=== PATIENT | male | born 1950 | race Caucasian/White ===

== ENCOUNTER 2017-07-27 11:47 | Emergency (ER) | payer OTHER ==
[2017-07-27 12:02] VITALS: PULSE 75
[2017-07-27 12:06] LABS: % IMMATURE GRANULYOCYTES 0.3 % (0.0-1.1); ABSOLUTE IMMATURE GRANULOCYTES 0.02 10^3/uL (0.00-0.10); ADD DIFF? NO; ADD MORPH? NO; ADD SCAN? NO; ATYPICAL LYMPHOCYTE FLAG 10 (0-99); FRAGMENT RBC FLAG 0 (0-99); HEMATOCRIT 43.9 % (40.0-51.0); HEMOGLOBIN 15.4 g/dL (13.7-17.5); LEFT SHIFT FLG 0 (0-99); LIPEMIA HEMOLYSIS FLAG 90 (0-99); MEAN CELL HEMOGLOBIN 33.7 pg (27.9-34.1); MEAN CELL HEMOGLOBIN CONCENTR. 35.1 g/dL (32.4-36.7); MEAN CELL VOLUME 96.1 fL (81.5-99.8); MEAN PLATELET VOLUME 10.5 fL (8.7-11.7); PLATELET CLUMPS FLAG 0 (0-99); PLATELET COUNT 236 10^3/uL (150-400); RED BLOOD CELL COUNT 4.57 10^6/uL (4.40-6.38); RED CELL DISTRIBUTION WIDTH 12.9 % (11.5-15.2)
[2017-07-27 12:24] LABS: ANION GAP 13 mEq/L (8-16); CALCIUM 9.5 mg/dL (8.5-10.4); CARBON DIOXIDE 22 mEq/l (22-31); CHLORIDE 100 mEq/L (97-110); CREATININE 0.9 mg/dL (0.7-1.3); GLOMERULAR FILTRATION RATE > 60; GLUCOSE 98 mg/dL (70-100); POTASSIUM 4.6 mEq/L (3.5-5.2); SODIUM 135 mEq/L (134-144)
--- NOTE | 2017-07-27 13:08 | EDPHY ---
H & P Stated Complaint: VASQUES, Weakness, Dizzy Time Seen by Provider: 07/27/17 12:55 HPI/ROS: CHIEF COMPLAINT: Lightheadedness, headache HISTORY OF PRESENT ILLNESS: This patient is a healthy 66 year old male arriving via EMS complaining of lightheadedness onset this afternoon shortly prior to arrival. Working at his office, experienced a bright flash of light in his entire field of vision, felt his head jerk or "snap" back once. He became very lightheaded immediately, and rested with his head between his legs for 5-10 minutes. He felt if he got up he would collapse. No room spinning sensation, no VASQUES and no diaphoresis. He asked his coworker to call 911. Since the event, he has developed a very mild headache at the back of his head which waxes and wanes, but his primary concern is the episode. He feels fatigued, but feels his dizziness has resolved at this time. He denies recent head or neck trauma or chiropractic manipulation. He denies prior similar episodes. REVIEW OF SYSTEMS: A 10 point review of systems was performed and is negative with the exception of the elements mentioned in the history of present illness. - Personal History Current Tetanus Diphtheria and Acellular Pertussis (TDAP): Yes - Medical/Surgical History PMH: Denies any pertinent past medical history. Hx Asthma: No Hx Chronic Respiratory Disease: No Hx Diabetes: No Hx Cardiac Disease: No Hx Renal Disease: No Hx Cirrhosis: No Hx Alcoholism: No Hx HIV/AIDS: No Hx Splenectomy or Spleen Trauma: No Other PMH: EOE, appy, hernia repair, orthox4, pleuracy 2014 - Social History Smoking Status: Never smoked Additional Social History: . at bedside. - Physical Exam Exam: General Appearance: Alert, no distress Eyes: Pupils equal and round, no conjunctival pallor or injection ENT, Mouth: Mucous membranes moist Neck: Normal inspection Respiratory: Lungs are clear to auscultation Cardiovascular: Regular rate and rhythm Gastrointestinal: Abdomen is soft and non- tender Neurological: Alert, oriented x3, cranial nerves II through XII intact, motor 5 /5, sensory intact to light touch. Normal [id number]. Skin: Warm and dry, no rash Extremities: Nontender, no pedal edema Psychiatric: Mood and affect normal Constitutional: Initial Vital Signs Temperature (C) 36.3 C 07/27/17 11:57 Heart Rate 75 07/27/17 11:57 Respiratory Rate 18 07/27/17 11:57 Blood Pressure 137/89 H 07/27/17 11:57 O2 Sat (%) 96 07/27/17 11:57 O2 Delivery Mode Room Air Allergies/Adverse Reactions: No Known Allergies Allergy (Unverified 09/11/14 22:38) Home Medications: Medication Instructions Recorded Aspirin [Aspirin 81mg (OTC)] 162 mg PO DAILY #60 tab 09/12/14 Cholecalciferol Vit D3 [Vitamin D3 1,000 units PO DAILY 09/12/14 (*)] Multivitamins [Multivitamin (*)] 1 each PO DAILY 09/12/14 [place]-3 Fatty Acids [Fish Oil 1000 1,000 mg PO DAILY 09/12/14 mg (*)] Medical Decision Making - Diagnostics EKG Interpretation: EKG interpreted by me reveals normal sinus rhythm, rate 74, no ST/T changes. Interpretation: normal EKG Imaging Results: Imaging Impressions Head CT 07/27/17 13:13 Impression: Normal brain. No intracranial hemorrhage or evidence of ischemia. Findings discussed with Emergency Department physician, Nikki Lofton, on July 27, 2017 at 1401 hours. Head CTA 07/27/17 13:13 Impression: 1. Normal intracranial arterial circulation. No evidence of embolic disease or aneurysm. 2. Patent venous system. Findings discussed with Emergency Department physician, Nikki Lofton at 1415 hours 07/27/2017. Neck CTA 07/27/17 13:13 Impression: 1. Widely patent bilateral carotid and vertebral arteries. Trace bilateral carotid bulb plaque. No flow-limiting stenosis or ulcerated plaque. 2. No dissection or occlusion. Measurement of carotid stenosis is based on the residual internal carotid diameter with [place] Symptomatic Carotid Endarterectomy Trial (NASCET) based stenosis levels. Findings discussed with Emergency Department physician, Nikki Lofton at 1432 hours 07/27/2017. Imaging: Discussed imaging studies w/ call center agent Radiologist ED Course/Re-evaluation: 66 year old male presents with an episode of lightheadedness following a bright flash of light about two hours ago. Physical exam unremarkable, the patient is neurologically intact and his symptoms have mostly resolved aside from a mild headache around his occipital area. Unusual constellation of symptoms. Given that he did not have a headache during the episode, I do not suspect that this aneurysm. In addition there is no evidence of CVA or TIA. There is no evidence of retinal detachment or primary ocular problem, given that this very brief episode of flash of light involved his entire visual field in both eyes. Plan for CT/CTA of the brain to evaluate for acute processes. Plan for EKG, labs including CBC 14:[address] Mullen, radiologist. CT head negative. 14:[address] Mullen, radiologist. CTA head negative. 14:[address] Mullen, radiologist. CTA neck negative. Reassessed patient. He continues to be asymptomatic. He will follow up with his primary care physician and with neurology. Plan to discharge home in good condition. FOllow up and return precautions discussed. The patient is comfortable with this plan. - Data Points Laboratory Results: Laboratory Results 07/27/17 Unknown 07/27/17 Unknown 07/27/17 07/27/17 Unknown Unknown WBC 7.59 10^3/uL 10^3/uL (3.80-9.50) RBC 4.57 10^6/uL 10^6/uL (4.40-6.38) Hgb 15.4 g/dL g/dL (13.7-17.5) Hct 43.9 % % (40.0-51.0) MCV 96.1 fL fL (81.5-99.8) MCH 33.7 pg pg (27.9-34.1) MCHC 35.1 g/dL g/dL (32.4-36.7) RDW 12.9 % % (11.5-15.2) Plt Count 236 10^3/uL 10^3/uL (150-400) MPV 10.5 fL fL (8.7-11.7) Neut % (Auto) 59.0 % % (39.3-74.2) Lymph % (Auto) 28.3 % % (15.0-45.0) [place] % (Auto) 9.2 % % (4.5-13.0) Eos % (Auto) 2.1 % % (0.6-7.6) Baso % (Auto) 1.1 % % (0.3-1.7) Nucleat RBC Rel Count 0.0 % % (0.0-0.2) Absolute Neuts (auto) 4.48 10^3/uL 10^3/uL (1.70-6.50) Absolute Lymphs (auto) 2.15 10^3/uL 10^3/uL (1.00-3.00) Absolute Monos (auto) 0.70 10^3/uL 10^3/uL (0.30-0.80) Absolute Eos (auto) 0.16 10^3/uL 10^3/uL (0.03-0.40) Absolute Basos (auto) 0.08 10^3/uL 10^3/uL (0.02-0.10) Absolute Nucleated RBC 0.00 10^3/uL 10^3/uL (0-0.01) Immature Gran % 0.3 % % (0.0-1.1) Immature Gran # 0.02 10^3/uL 10^3/uL (0.00-0.10) Sodium 135 mEq/L mEq/L (134-144) Potassium 4.6 mEq/L mEq/L (3.5-5.2) Chloride 100 mEq/L mEq/L (97-110) Carbon Dioxide 22 mEq/l mEq/l (22-31) Anion Gap 13 mEq/L mEq/L (8-16) BUN 11 mg/dL mg/dL (7-23) Creatinine 0.9 mg/dL mg/dL (0.7-1.3) Estimated GFR > 60 Glucose 98 mg/dL mg/dL (70-100) Calcium 9.5 mg/dL mg/dL (8.5-10.4) Departure - Departure Disposition: Home, Routine, Self-Care Clinical Impression: Dizziness, Flashing lights seen Condition: Good Instructions: Lightheadedness (ED), Dizziness (ED) Additional Instructions: 1. Follow up with your primary care physician and with neurology for continued evaluation of your symptoms. We have referred you to our neurologist construction lineman. 2. Return to the emergency department for recurrent symptoms, severe headache, weakness, numbness, persistent dizziness, or other worsening of condition. Referrals: Cecilia Husain MD [Primary Care Provider] - As per Instructions Hector Chino MD [Medical Doctor] - As per Instructions Report Scribed for: Nikki Lofton Report Scribed by: Ct Hauser Date of Report: 07/27/17 Time of Report: 13:06 Physician Review and Approval Statement: 07/27/17 13:06 Portions of this note were transcribed by a medical technicians. I personally performed a history, physical exam, medical decision making, and confirmed accuracy of information the transcribed note.
[2017-07-27] MEDS ORDERED: IOPAMIDOL (ISOVUE 370) 100 ML BTL IV ONE (13:16)
--- NOTE | 2017-07-27 13:20 | CPEKG ---
Heart Rate: 74 RR Interval: 811 P-R Interval: 188 QRSD Interval: 82 QT Interval: 396 QTC Interval: 440 P [place]: 55 QRS [place]: 13 T Wave [place]: 19 EKG Severity - NORMAL ECG - EKG Impression: SINUS RHYTHM Electronically Signed By: Lokesh Bates 27-Jul-2017 14:15:25
[2017-07-27 14:35] VITALS: BP 122/72; RESP 16; O2SAT 93
[2017-07-27 14:56] VITALS: TEMP 97.2
== END 2017-07-27 14:55 | disposition home or self-care (01) ==
LOC: EDUNIT#
DX: R42 Dizziness and giddiness (principal); H53.19 Other subjective visual disturbances; Z79.82 Long term (current) use of aspirin
CPT/HCPCS: Q9967

== ENCOUNTER → 2019-04-26 | Outpatient (CLI) | payer OTHER, MEDICARE | LOC: BMCIMAGING 07:59 ==